=== PATIENT | female | born 1995 | race Caucasian/White ===

== ENCOUNTER 2016-11-23 17:00 | Emergency (ER) | payer OTHER ==
[2016-11-23 17:18] VITALS: O2SAT 99
--- NOTE | 2016-11-23 17:29 | C.PDOC ---
Chief Complaint (Nursing): Abdominal Pain Past Medical History Vital Signs: Last Vital Signs Temp 99.8 F H 11/23/16 17:09 Pulse 82 11/23/16 17:09 Resp 16 11/23/16 17:09 BP 111/68 11/23/16 17:09 Pulse Ox 99 11/23/16 17:09 - Social History Hx Alcohol Use: No Hx Substance Use: No - Immunization History Hx Tetanus Toxoid Vaccination: No Hx Influenza Vaccination: No Hx Pneumococcal Vaccination: No ED Course And Treatment O2 Sat by Pulse Oximetry: 99
[2016-11-23 17:55] LABS: BASO % 0.4 % (0.0-2.0); EOS # 0.8 K/uL (0.0-0.7); EOS % 6.5 % (0.0-4.0); HEMOGLOBIN 13.2 g/dL (11.0-16.0); LYMPH # 2.5 K/uL (1.0-4.3); LYMPH % 21.4 % (20.0-40.0); MEAN CELL VOLUME 91.8 fL (81.0-99.0); MEAN CORPUSCULAR HEMOGLOBIN 30.6 pg (27.0-31.0); MEAN CORPUSCULAR HGB CONC 33.4 g/dL (33.0-37.0); MEAN PLATELET VOLUME 8.2 fL (7.2-11.7); MONO # 0.9 K/uL (0.0-0.8); MONO % 7.2 % (0.0-10.0); NEUT # 7.6 K/uL (1.8-7.0); NEUT % 64.5 % (50.0-75.0); RBC 4.32 Mil/uL (3.80-5.20); RED CELL DISTRIBUTION WIDTH 13.4 % (11.5-14.5); WHITE BLOOD COUNT 11.9 K/uL (4.8-10.8)
[2016-11-23 17:56] LABS: HCG,QUALITATIVE URINE POSITIVE (NEGATIVE)
--- NOTE | 2016-11-23 17:56 | C.PDOC ---
History Of Present Illness <Kayla Lopez - Last Filed: 11/23/16 19:04> <Tavo Xiong - Last Filed: 11/23/16 19:36> 21-year-old female, (, at 10-weeks), presents to the emergency department with complaints of lower abdominal cramping and mild vaginal bleeding that started two days ago. Denies nausea/vomiting, fevers, chills, shortness of breath or chest pain. No other complaints (Kayla Lopez) History Per: Patient History/Exam Limitations: no limitations Onset/Duration Of Symptoms: Days Current Symptoms Are (Timing): Still Present Severity: Moderate <Kayla Lopez - Last Filed: 11/23/16 19:04> <Tavo Xiong - Last Filed: 11/23/16 19:36> Time Seen by Provider: 11/23/16 17:31 Chief Complaint (Nursing): Abdominal Pain Past Medical History Reviewed: Historical Data, Nursing Documentation, Vital Signs Family History: States: No Known Family Hx - Social History Hx Alcohol Use: No Hx Substance Use: No - Immunization History Hx Tetanus Toxoid Vaccination: No Hx Influenza Vaccination: No Hx Pneumococcal Vaccination: No <Kayla Lopez - Last Filed: 11/23/16 19:04> Review Of Systems Except As Marked, All Systems Reviewed And Found Negative. Constitutional: Negative for: Fever, Chills Cardiovascular: Negative for: Chest Pain Respiratory: Negative for: Shortness of Breath Gastrointestinal: Positive for: Abdominal Pain. Negative for: Nausea, Vomiting Genitourinary: Positive for: Vaginal Bleeding <Kayla Lopez - Last Filed: 11/23/16 19:04> Physical Exam - Physical Exam Appears: Non-toxic, No Acute Distress Skin: Warm, Dry, No Rash Eye(s): bilateral: Normal Inspection Nose: Normal Oral Mucosa: Moist Lips: Normal Appearing Neck: Normal ROM Chest: Symmetrical Cardiovascular: Rhythm Regular, No Murmur Respiratory: Normal Breath Sounds, No Accessory Muscle Use Gastrointestinal/Abdominal: Tenderness (mild, pelvic), No Guarding, No Rebound Extremity: Normal ROM Neurological/Psych: Oriented x3, Normal Speech <Kayla Lopez - Last Filed: 11/23/16 19:04> ED Course And Treatment - Laboratory Results Result Diagrams: 11/23/16 17:51 11/23/16 17:51 O2 Sat by Pulse Oximetry: 99 (on RA) Pulse Ox Interpretation: Normal <Kayla Lopez - Last Filed: 11/23/16 19:04> - Laboratory Results Result Diagrams: 11/23/16 17:51 11/23/16 17:51 - CT Scan/US Pelvic US Other Rad Studies (CT/US): Read By Radiologist, Radiology Report Reviewed CT/US Interpretation: IMPRESSION: 11 week 2 day single living intrauterine gestation, estimated date. of delivery 06/12/17 Progress Note: Pt was signed out to me at 7pm by Dr. Sahu/EUSEBIO Lopez to f/up pelvic US. Reassessment Condition: Improved <Tavo Xiong E - Last Filed: 11/23/16 19:36> Disposition - Disposition Disposition Time: 19:04 <Kayla Lopez - Last Filed: 11/23/16 19:04> Counseled Patient/Family Regarding: Studies Performed, Diagnosis, Need For Followup, Rx Given - Disposition Disposition Time: 19:34 <Tavo Xiong - Last Filed: 11/23/16 19:36> - Disposition Referrals: Jayme Sarah [Staff Provider] - [facility] [Outside] Disposition: HOME/ ROUTINE Condition: STABLE Additional Instructions: Drink plenty of fluids. Follow up with your [employer] doctor within 1 week. Return to the ER if you develop fever, dizziness, worsening of symptoms or if you have any other concerns. Prescriptions: Nitrofurantoin Macrocrystals [Macrobid] 1 cap PO BID #14 cap Instructions: Threatened Miscarriage (ED) Print Language: WELSH - Clinical Impression Clinical Impression: Threatened , UTI (urinary tract infection) - PA / CLINICAL ENGINEERING MANAGER / Resident Statement MD/DO has reviewed & agrees with the documentation as recorded. - Scribe Statement The provider has reviewed the documentation as recorded by the Scribe (Lillian Wilkes) <Kayla Lopez - Last Filed: 11/23/16 19:04> <Tavo Xiong E - Last Filed: 11/23/16 19:36> - Scribe Statement All medical record entries made by the Scribe were at my direction and personally dictated by me. I have reviewed the chart and agree that the record accurately reflects my personal performance of the history, physical exam, medical decision making, and the department course for this patient. I have also personally directed, reviewed, and agree with the discharge instructions and disposition. (Kayla Lopez) Physician Patient Turnover Patient Signed Over To: Tavo Xiong Handoff Comments: PEnding ultrasound and disposition <Kayla Lopez - Last Filed: 11/23/16 19:04>
[2016-11-23 18:06] LABS: ALB/GLOB RATIO 1.3 (1.0-2.1); AST/SGOT 16 U/L (14-36); GFR AFRICAN-AMERICAN > 60; GFR NON-AFRICAN AMERICAN > 60
[2016-11-23 18:07] LABS: ALT/SGPT 26 U/L (9-52); BLOOD UREA NITROGEN 9 mg/dL (7-17); CALCIUM 9.6 mg/dl (8.6-10.4)
[2016-11-23 18:08] LABS: SQUAMOUS EPITHIAL 11 /hpf (0-5); URINE BACTERIA RARE (<OCC); URINE BILIRUBIN NEGATIVE (NEGATIVE); URINE BLOOD NEGATIVE (NEGATIVE); URINE CLARITY Hazy (Clear); URINE COLOR Yellow (YELLOW); URINE GLUCOSE (UA) NORMAL (Normal); URINE LEUKOCYTE ESTERASE TRACE Leu/uL (Negative); URINE NITRATE POSITIVE (NEGATIVE); URINE PROTEIN NEGATIVE (NEGATIVE); URINE UROBILINOGEN NORMAL mg/dL (0.2-1.0)
--- NOTE | 2016-11-23 19:15 | US ---
EXAM: US First Trimester, Transabdominal CLINICAL HISTORY: 21 years old, female; Pain; complicated by abdominal or pelvic pain; Lower; First trimester; Gestational age or lmp: 07/17/16; ; Additional info: Preg, vag bleed TECHNIQUE: Real-time transabdominal obstetrical ultrasound of the maternal pelvis and a first trimester with image documentation. EXAM DATE/TIME: 11/23/2016 5:32 PM COMPARISON: There are no prior studies for comparison. FINDINGS: Gestation: There is a single living intrauterine gestation. Gestational sac has mean diameter 47.4 mm.[place] rump length measures approximately 44.7 mm. There is a heart rate of 168 beats per minute. A yolk sac is not visible. Uterus: Uterus measures approximately 12 x 6 x 7 cm. The cervix measures approximately 3 cm in length. Ovaries: Left ovary measures approximately 2.8 x 1.3 x 2.7 cm. There are multiple small follicles.There is a corpus luteum in the left ovary. Right ovary measures approximately 3.5 x 1.6 x 2.4 cm. There are multiple small follicles. There is flow in both ovaries on Doppler imaging. Free fluid: There is no free fluid. free fluid. IMPRESSION: 11 week 2 day single living intrauterine gestation, estimated date of delivery 06/12/17
[2016-11-23 21:21] VITALS: BP 99/61; PULSE 68; RESP 18; TEMP 98.8
== END 2016-11-23 19:00 | disposition home or self-care (01) ==
LOC: C.ER 17:00
DX: O20.0 Threatened abortion (principal); O23.41 Unspecified infection of urinary tract in pregnancy, first trimester; B96.20 Unspecified Escherichia coli [E. coli] as the cause of diseases classified elsewhere; Z3A.10 10 weeks gestation of pregnancy